=== PATIENT | female | born 1965 | race American Indian/Alaskan Native ===

== ENCOUNTER 2019-11-16 06:43 | Inpatient (IN) | payer SELFPAY ==
[2019-11-16 07:42] LABS: Calcium 9.8 mg/dL (8.4-10.2)
[2019-11-16 08:29] LABS: Basophils # (Auto) 0.1 K/mm3 (0.0-0.1); Basophils % (Auto) 1.1 % (0.0-1.8); Eosinophils # (Auto) 0.2 K/mm3 (0.0-0.4); Eosinophils % (Auto) 3.1 % (0.0-4.3); Hematocrit 30.8 % (30.3-42.9); Hemoglobin 9.9 gm/dl (10.1-14.3); Lymphocytes # (Auto) 2.5 K/mm3 (1.2-5.4); Lymphocytes % (Auto) 48.8 % (13.4-35.0); Mean Corpuscular HGB Conc 32 % (30-34); Mean Corpuscular Volume 95 fl (79-97); Monocytes # (Auto) 0.4 K/mm3 (0.0-0.8); Monocytes % (Auto) 7.5 % (0.0-7.3); Platelet Count 293 K/mm3 (140-440); Red Blood Count 3.24 M/mm3 (3.65-5.03); Red Cell Distribution Width 16.1 % (13.2-15.2)
[2019-11-16] MEDS ORDERED: FUROSEMIDE 40 MG/4 ML INJ IV ONE (12:49)
--- NOTE | 2019-11-16 12:56 | Emergency Department Report ---
ED Shortness of Breath HPI - General Chief Complaint: Dyspnea/Respdistress Stated Complaint: FACIAL SWELLING/SOB Time Seen by Provider: 11/16/19 12:46 Source: patient, family Mode of arrival: Ambulatory Limitations: No Limitations - History of Present Illness Initial Comments: Patient is 54 years old female morbidly obese with no significant past medical history however patient stated that the last time she saw a doctor was in 2014. Patient presented to the ER complaining of generalized body swelling and shortness of breath. Patient also stated that she is having trouble walking was out getting a shortness of breath even for short distance. Patient with positive orthopnea. Patient denied any fever or chills. No chest pain. MD Complaint: shortness of breath, cough -: week(s) (2) - Related Data Previous Rx's Medication Instructions Recorded Last Taken Type Acetaminophen/Codeine [Tylenol #3] 1 tab PO Q6H PRN #2 tab 07/31/13 Unknown Rx Ibuprofen [Motrin 800 MG tab] 800 mg PO Q8HR PRN #30 tablet 10/22/15 Unknown Rx traMADoL [Ultram 50 MG tab] 50 mg PO Q6HR PRN #20 tablet 10/22/15 Unknown Rx Allergies Allergy/AdvReac Type Severity Reaction Status Date / Time No Known Allergies Allergy Unverified 07/31/13 04:03 ED Review of Systems ROS: Stated complaint: FACIAL SWELLING/SOB Other details as noted in HPI Comment: All other systems reviewed and negative Constitutional: denies: chills, fever Respiratory: cough, orthopnea, shortness of breath, SOB with exertion, SOB at rest. denies: wheezing Cardiovascular: dyspnea on exertion, orthopnea, paroxysmal nocturnal dyspnea. denies: chest pain Gastrointestinal: denies: abdominal pain Genitourinary: denies: urgency, dysuria Musculoskeletal: denies: back pain Neurological: denies: headache, weakness, numbness, paresthesias, confusion, abnormal gait ED Past Medical Hx - Past Medical History Previous Medical History?: Yes Additional medical history: Obesity - Surgical History Past Surgical History?: Yes Additional Surgical History: - Social History Smoking Status: Never Smoker Substance Use Type: None - Medications Home Medications: Home Medications Medication Instructions Recorded Confirmed Last Taken Type Acetaminophen/Codeine [Tylenol #3] 1 tab PO Q6H PRN #2 tab 07/31/13 Unknown Rx Ibuprofen [Motrin 800 MG tab] 800 mg PO Q8HR PRN #30 tablet 10/22/15 Unknown Rx traMADoL [Ultram 50 MG tab] 50 mg PO Q6HR PRN #20 tablet 10/22/15 Unknown Rx ED Physical Exam - General Limitations: No Limitations General appearance: alert - Head Head exam: Present: atraumatic, normocephalic - Eye Eye exam: Present: normal appearance, PERRL, periorbital swelling - ENT ENT exam: Present: normal exam, normal orophraynx, mucous membranes moist - Neck Neck exam: Present: normal inspection, full ROM. Absent: tenderness, meningismus, lymphadenopathy, thyromegaly - Respiratory Respiratory exam: Present: rales. Absent: respiratory distress - Cardiovascular Cardiovascular Exam: Present: regular rate, normal rhythm, normal heart sounds - GI/Abdominal GI/Abdominal exam: Present: soft, normal bowel sounds. Absent: distended, tenderness, guarding, rebound, rigid, mass, bruit, pulsatile mass, hernia - Extremities Exam Extremities exam: Present: normal capillary refill, pedal edema. Absent: calf tenderness - Back Exam Back exam: Present: normal inspection, full ROM. Absent: CVA tenderness (R), CVA tenderness (L), muscle spasm, paraspinal tenderness, vertebral tenderness - Neurological Exam Neurological exam: Present: alert, oriented X3, CN II-XII intact, normal gait, reflexes normal - Psychiatric Psychiatric exam: Present: normal mood - Skin Skin exam: Present: warm, intact, normal color ED Course Vital Signs 11/16/19 11/16/19 06:49 13:31 Temperature 97.4 F L Pulse Rate 80 100 H Respiratory 20 16 Rate Blood Pressure 144/95 139/78 O2 Sat by Pulse 96 96 Oximetry ED Medical Decision Making - Lab Data Result diagrams: 11/16/19 07:12 11/16/19 07:12 - EKG Data -: EKG Interpreted by [place] EKG shows normal: sinus rhythm Rate: normal - EKG Data Interpretation: no acute changes - Radiology Data Radiology results: report reviewed - Medical Decision Making Patient is 54 years old female morbidly obese with no significant past medical history however patient stated that the last time she saw a doctor was in 2014. Patient presented to the ER complaining of generalized body swelling and shortness of breath. Patient also stated that she is having trouble walking was out getting a shortness of breath even for short distance. Patient with positive orthopnea. Patient denied any fever or chills. No chest pain. Patient received Lasix 40 mg IV. EKG showed no ST elevation or depression. Chest x-ray showed cardiomegaly, pleural effusion and pulmonary congestion consistent with knee onset congestive heart failure. Patient troponin is slightly elevated. Patient given aspirin. I discussed the patient with Dr. Shahab srinivasan, he advised to admit the patient to Dr. Thompson. Critical Care Time: Yes Critical care time in (mins) excluding proc time.: 30 Critical care attestation.: If time is entered above; I have spent that time in minutes in the direct care of this critically ill patient, excluding procedure time. ED Disposition Clinical Impression: New onset of congestive heart failure, Shortness of breath, Elevated troponin Disposition: OP ADMIT IP TO THIS HOSP Is pt being admited?: Yes Condition: Stable Referrals: PRIMARY CARE, [Primary Care Provider] - 3-5 Days
--- NOTE | 2019-11-16 13:21 | XRay Report ---
CHEST 1 VIEW INDICATION / CLINICAL INFORMATION: Dyspnea. COMPARISON: 08/29/2010 FINDINGS: SUPPORT DEVICES: None. HEART / MEDIASTINUM: Cardiac silhouette is mild to moderately enlarged. This represents interval mueller ge compared with the 2010 chest radiograph.. LUNGS / PLEURA: Mild pulmonary vascular congestion without overt interstitial pulmonary edema. No pne umothorax. ADDITIONAL FINDINGS: No significant additional findings. IMPRESSION: 1. Since 2009, cardiac silhouette has definitely enlarged. It is unclear if this is secondary to card iomegaly or pericardial effusion. There is associated mild pulmonary vascular congestion. Signer Name: Susan Lechuga MD Signed: 11/16/2019 1:16 PM Workstation Name: [id number]
[2019-11-16 13:40] LABS: INR 0.95 (0.87-1.13)
[2019-11-16 13:41] LABS: Partial Thromboplastin Time 38.6 Sec. (24.2-36.6)
[2019-11-16] MEDS ORDERED: ASPIRIN 81 MG TAB CHEW PO ONE (14:12)
[2019-11-16 14:13] LABS: Chol/HDL Ratio 7.25 %
[2019-11-16] MEDS ORDERED: hydrALAZINE 20 MG/1 ML INJ IV PRN (14:20)
[2019-11-16] MEDS ORDERED: ONDANSETRON 4 MG/2 ML INJ IV PRN (14:20)
[2019-11-16] MEDS ORDERED: ACETAMINOPHEN 325 MG TAB PO PRN (14:20)
--- NOTE | 2019-11-16 14:22 | History and Physical Report ---
History of Present Illness Date of examination: 11/16/19 Date of admission: 11/16/19 Chief complaint: SOB History of present illness: Patient is 54 years old female morbidly obese with no significant past medical history however patient stated that the last time she saw a doctor was in 2014. Patient presented to the ER complaining of generalized body swelling and shortness of breath. Patient also stated that she is having trouble walking was out getting a shortness of breath even for short distance. Patient with positive orthopnea. Patient denied any fever or chills. No chest pain. Review of System: Constitutional: no fever, no chills, no weight loss, positive facial swelling Ears, eyes, nose, mouth and throat: no nasal congestion, no nasal discharge, no sinus pressure, no vision change, no red eye. Neck: No neck pain or rigidity. Cardiovascular: No chest pain, no orthopnea, no palpitations, + leg swelling Respiratory: + shortness of breath, + cough, + congestion, + wheezing Gastrointestinal: no abdominal pain, no nausea, no vomiting Genitourinary : no dysuria, no hematuria Musculoskeletal: no joint swelling or muscle ache Integumentary: no rash, no pruritis Neurological: no parathesias, no numbness, no tingling Endocrine: no cold or heat intolerance, no polyuria or polydipsia Hematologic/Lymphatic: no easy bruising, no easy bleeding, no gland swelling Allergic/Immunologic: no urticaria, no angioedema. Past History Past Medical History: No medical history Past Surgical History: Social history: denies: smoking, alcohol abuse, IV drug use Family history: hypertension Medications and Allergies Allergies Allergy/AdvReac Type Severity Reaction Status Date / Time No Known Allergies Allergy Unverified 07/31/13 04:03 Home Medications Medication Instructions Recorded Confirmed Last Taken Type Acetaminophen/Codeine [Tylenol #3] 1 tab PO Q6H PRN #2 tab 07/31/13 11/16/19 1 Day Ago Rx ~11/15/19 Ibuprofen [Motrin 800 MG tab] 800 mg PO Q8HR PRN #30 tablet 10/22/15 11/16/19 1 Day Ago Rx ~11/15/19 traMADoL [Ultram 50 MG tab] 50 mg PO Q6HR PRN #20 tablet 10/22/15 11/16/19 1 Day Ago Rx ~11/15/19 Active Meds: Active Medications Acetaminophen (Tylenol) 650 mg PO Q4H PRN PRN Reason: Pain MILD(1-3)/Fever >100.5/CALLE Famotidine (Pepcid) 10 mg PO BID PATRICIA Hydralazine HCl (Apresoline) 5 mg IV Q30MIN PRN PRN Reason: Hypertension Ondansetron HCl (Zofran) 4 mg IV Q8H PRN PRN Reason: N/V unrelieved by Reglan Oxycodone/Acetaminophen (Percocet 5/325) 1 tab PO Q6H PRN PRN Reason: Pain, Moderate (4-6) Exam - Physical Exam Narrative exam: GENERAL: Morbidly obese -Congolese female lying on bed appeared to be in no discomfort. HEENT: Normocephalic. Atraumatic. No conjunctival congestion or icterus. Patient has moist mucous membranes. NECK: Supple. Trachea midline. CHEST/LUNGS: breathing nonlabored. No wheezes or rhonchi. Few bibasilar crackles HEART/CARDIOVASCULAR: Regular in rate and rhythm. S1 and S2 positive. ABDOMEN: Abdomen is soft, nontender. Patient has normal bowel sounds. SKIN: There is no rash. Warm and dry. NEURO: No focal motor deficit. Follows command. MUSCULOSKELETAL: No joint effusion or tenderness. EXTRIMITY: Trace edema, no cyanosis or clubbing. PSYCH: Cooperative. - Constitutional Vitals: Temp Pulse Resp BP Pulse Ox 97.4 F L 100 H 16 139/78 96 11/16/19 06:49 11/16/19 13:31 11/16/19 13:31 11/16/19 13:31 11/16/19 13:31 Results - Labs CBC & Chem 7: 11/16/19 07:12 11/18/19 06:58 Labs: Abnormal lab results 11/16/19 11/16/19 11/16/19 Range/Units 07:12 07:12 07:12 RBC 3.24 L (3.65-5.03) M/mm3 Hgb 9.9 L (10.1-14.3) gm/dl RDW 16.1 H (13.2-15.2) % Lymph % (Auto) 48.8 H (13.4-35.0) % [place] % (Auto) 7.5 H (0.0-7.3) % Seg Neutrophils % 39.5 L (40.0-70.0) % APTT (24.2-36.6) Sec. Chloride 96.0 L (98-107) mmol/L BUN 6 L (7-17) mg/dL Troponin T 0.054 H (0.00-0.029) ng/mL Triglycerides 279 H (2-149) mg/dL Cholesterol 421 H (50-199) mg/dL LDL Cholesterol Direct 328 H (50-130) mg/dL 11/16/19 Range/Units 13:12 RBC (3.65-5.03) M/mm3 Hgb (10.1-14.3) gm/dl RDW (13.2-15.2) % Lymph % (Auto) (13.4-35.0) % [place] % (Auto) (0.0-7.3) % Seg Neutrophils % (40.0-70.0) % APTT 38.6 H (24.2-36.6) Sec. Chloride (98-107) mmol/L BUN (7-17) mg/dL Troponin T (0.00-0.029) ng/mL Triglycerides (2-149) mg/dL Cholesterol (50-199) mg/dL LDL Cholesterol Direct (50-130) mg/dL Assessment and Plan Possible new onset CHF with systolic failure NSTEMI likely type 2 Hyperlipidemia Morbid obesity - - admit to telemetry bed - monitor with serial CE and EKG - will place on Aspirin, statin, and Lasix IV - order 2D echo and consult cardiology - cardiac diet now, daily weights, monitor in's and O's - Weight reduction diet and excision regimen when medically stable - provide DVT Px with lovenox
[2019-11-16 15:59] LABS: Alanine Aminotransferase 19 units/L (7-56); Albumin 4.5 g/dL (3.9-5)
[2019-11-16 16:05] LABS: Bilirubin,Direct < 0.2 mg/dL (0-0.2)
[2019-11-16] MEDS ORDERED: ENOXAPARIN 40 MG/0.4 ML INJ SUB-Q ONE (17:03)
[2019-11-16] MEDS: ASPIRIN 325 MG TAB PO SCH (17:07)
[2019-11-16] MEDS: ENOXAPARIN 40 MG/0.4 ML INJ SUB-Q SCH (17:11)
[2019-11-16] MEDS: FAMOTIDINE 10 MG TAB PO SCH (21:17)
--- NOTE | 2019-11-17 10:55 | Consultation ---
History of Present Illness Consult date: 11/17/19 Requesting physician: RONEN PATEL Consult reason: congestive heart failure History of present illness: 54-year-old female with morbid obesity has not had medical care for years has chronic back issues having shortness shortness of breath. Having swelling and unable to lay down flat. Came to the ER for further evaluation was admitted for congestive heart failure patient denies any fever or chills. Patient had no syncope no palpitations. Patient shortness with minimal exertion.. Patient denies any syncope. Patient states having some swelling in the tongue and face but denies any medication. Past History Past Medical History: denies: No medical history Past Surgical History: Social history: denies: no significant social history Family history: denies: no significant family history Medications and Allergies Allergies Allergy/AdvReac Type Severity Reaction Status Date / Time No Known Allergies Allergy Unverified 07/31/13 04:03 Home Medications Medication Instructions Recorded Confirmed Last Taken Type Acetaminophen/Codeine [Tylenol #3] 1 tab PO Q6H PRN #2 tab 07/31/13 11/16/19 1 Day Ago Rx ~11/15/19 Ibuprofen [Motrin 800 MG tab] 800 mg PO Q8HR PRN #30 tablet 10/22/15 11/16/19 1 Day Ago Rx ~11/15/19 traMADoL [Ultram 50 MG tab] 50 mg PO Q6HR PRN #20 tablet 10/22/15 11/16/19 1 Day Ago Rx ~11/15/19 Active Meds: Active Medications Acetaminophen (Tylenol) 650 mg PO Q4H PRN PRN Reason: Pain MILD(1-3)/Fever >100.5/CALLE Last Admin: 11/16/19 21:16 Dose: 650 mg Documented by: Aspirin (Aspirin) 325 mg PO QDAY [facility] Last Admin: 11/16/19 17:07 Dose: Not Given Documented by: Atorvastatin Calcium (Lipitor) 40 mg PO QHS [facility] Last Admin: 11/16/19 21:17 Dose: 40 mg Documented by: Carvedilol (Coreg) 3.125 mg PO BID [facility] Diphenhydramine HCl (Banophen) 25 mg PO ONCE ONE Stop: 11/17/19 11:01 Enoxaparin Sodium (Enoxaparin) 40 mg SUB-Q Q24H [facility] Last Admin: 11/16/19 17:11 Dose: 40 mg Documented by: Famotidine (Pepcid) 10 mg PO BID [facility] Last Admin: 11/16/19 21:17 Dose: 10 mg Documented by: Furosemide (Lasix) 40 mg IV 0600,1800 [facility] Hydralazine HCl (Apresoline) 5 mg IV Q30MIN PRN PRN Reason: HTN SYS>180 JACK >100 Ondansetron HCl (Zofran) 4 mg IV Q8H PRN PRN Reason: N/V unrelieved by Reglan Oxycodone/Acetaminophen (Percocet 5/325) 1 tab PO Q6H PRN PRN Reason: Pain, Moderate (4-6) Pneumococcal Polyvalent Vaccine (Pneumovax 23) 0.5 ml IM .ONCE ONE Stop: 11/17/19 12:01 Review of Systems All systems: negative (as per hpi) Physical Examination Vital Signs Temp Pulse Resp BP Pulse Ox 97.4 F L 80 20 144/95 96 11/16/19 06:49 11/16/19 06:49 11/16/19 06:49 11/16/19 06:49 11/16/19 06:49 General appearance: no acute distress, well-nourished HEENT: Positive: PERRL, Mucus Membranes Moist Neck: Positive: neck supple, trachea midline Cardiac: Positive: Reg Rate and Rhythm, S1/S2. Negative: Audible Murmur Lungs: Positive: clear to auscultation, Normal Breath Sounds Neuro: Positive: Grossly Intact Abdomen: Positive: Soft, Active Bowel Sounds. Negative: Tender, Distended Female genitourinary: deferred Skin: Positive: Clear Incision: Cardiac Cath Site Musculoskeletal: No Pain, Normal Range of Motion Extremities: Present: normal. Absent: edema Results 11/16/19 07:12 11/16/19 07:12 Cardiac Enzymes 11/16/19 Range/Units 14:41 AST 79 H (5-40) units/L Coagulation 11/16/19 Range/Units 13:12 PT 12.8 (12.2-14.9) Sec. INR 0.95 (0.87-1.13) APTT 38.6 H (24.2-36.6) Sec. Lipids 11/16/19 Range/Units 07:12 Triglycerides 279 H (2-149) mg/dL Cholesterol 421 H (50-199) mg/dL HDL Cholesterol 58 (40-59) mg/dL Cholesterol/HDL Ratio 7.25 % Comprehensive Metabolic Panel 11/16/19 Range/Units 14:41 Direct Bilirubin < 0.2 (0-0.2) mg/dL Indirect Bilirubin 0.1 mg/dL AST 79 H (5-40) units/L ALT 19 (7-56) units/L Alkaline Phosphatase 57 (35-129) units/L Total Protein 9.4 H (6.3-8.2) g/dL Albumin 4.5 (3.9-5) g/dL EKG interpretations - Telemetry EKG Rhythm: Sinus Rhythm (normal sinus rhythm nonspecific ST-T wave) Assessment and Plan Morbid obesity Acute systolic heart failure nstemi type 2 Hyperlipidemia Recommend low-dose beta josué hold GIOVANI inhibitor and ARB secondary to tongue and lip swelling will continue high-dose statin. echo will do a Lexiscan nuclear stress test
[2019-11-17] MEDS ORDERED: diphenhydrAMINE 25 MG/10 ML ORAL LIQUID PO ONE (11:00)
[2019-11-17] MEDS: ASPIRIN 325 MG TAB PO SCH (11:43)
[2019-11-17] MEDS: oxyCODONE /ACETAMINOPHEN 5-325MG TAB PO PRN (11:43)
[2019-11-17] MEDS: FAMOTIDINE 10 MG TAB PO SCH ×2 (11:43→23:31)
[2019-11-17] MEDS: FUROSEMIDE 40 MG/4 ML INJ IV SCH ×2 (11:44→23:42)
[2019-11-17] MEDS ORDERED: FLU VACC QUAD 2019-20 (3 YR UP)/PF 60 MCG/0.5 ML SYRINGE IM ONE (12:00)
[2019-11-17] MEDS ORDERED: PNEUMOCOCCAL 23 Valent 0.5 ML VIAL IM ONE (12:00)
--- NOTE | 2019-11-17 15:20 | Progress Note ---
Assessment and Plan Possible new onset CHF NSTEMI likely type 2 Hyperlipidemia Morbid obesity -Continue to monitor at telemetry bed -Trending cardiac enzymes, no chest pain -Continue on Aspirin, statin, and Lasix IV -Pending 2D echo and cardiology following - cardiac diet now, daily weights, monitor in's and O's - Weight reduction diet and excision regimen when medically stable - provide DVT Px with lovenox Subjective Date of service: 11/17/19 Interval history: Patient seen and examined. Medical records and medication list reviewed. No acute event overnight noted by the RN. Patient denies any chest pain but still has difficulty breathing on exertion and bilateral lower extremities swelling. Patient is tolerating diet. Discussed plan of care at bedside with patient. Objective - Exam Narrative Exam: GENERAL: Morbidly obese -[place] female lying on bed appeared to be in no discomfort. HEENT: Normocephalic. Atraumatic. No conjunctival congestion or icterus. Patient has moist mucous membranes. NECK: Supple. Trachea midline. CHEST/LUNGS: breathing nonlabored. No wheezes or rhonchi. Few bibasilar crackles HEART/CARDIOVASCULAR: Regular in rate and rhythm. S1 and S2 positive. ABDOMEN: Abdomen is soft, nontender. Patient has normal bowel sounds. SKIN: There is no rash. Warm and dry. NEURO: No focal motor deficit. Follows command. MUSCULOSKELETAL: No joint effusion or tenderness. EXTRIMITY: Trace edema, no cyanosis or clubbing. PSYCH: Cooperative. - Constitutional Vitals: Vital Signs - 12hr 11/17/19 11/17/19 11/17/19 06:16 09:50 12:32 Temperature 98.2 F 97.9 F 97.2 F L Pulse Rate 66 68 67 Respiratory 16 18 18 Rate Blood Pressure 151/82 145/85 122/81 O2 Sat by Pulse 96 96 92 Oximetry - Labs CBC & Chem 7: 11/16/19 07:12 11/18/19 06:58 Labs: Abnormal lab results 11/16/19 11/16/19 11/17/19 Range/Units 14:41 19:26 00:07 AST 79 H (5-40) units/L Troponin T 0.049 H 0.041 H (0.00-0.029) ng/mL Total Protein 9.4 H (6.3-8.2) g/dL 11/17/19 11/17/19 Range/Units 06:42 13:19 AST (5-40) units/L Troponin T 0.045 H 0.048 H (0.00-0.029) ng/mL Total Protein (6.3-8.2) g/dL
[2019-11-17] MEDS: ENOXAPARIN 40 MG/0.4 ML INJ SUB-Q SCH (15:24)
[2019-11-17] MEDS: carvediloL 3.125 MG TAB PO SCH (23:42)
[2019-11-18] MEDS: oxyCODONE /ACETAMINOPHEN 5-325MG TAB PO PRN (03:08)
[2019-11-18] MEDS: FUROSEMIDE 40 MG/4 ML INJ IV SCH (06:31)
[2019-11-18 07:45] LABS: Calcium 9.1 mg/dL (8.4-10.2)
[2019-11-18] MEDS ORDERED: REGADENOSON 0.4 MG/5 ML INJ IV ONE (09:57)
[2019-11-18] MEDS ORDERED: FUROSEMIDE 40 MG/4 ML INJ IV SCH (10:00)
--- NOTE | 2019-11-18 11:41 | Progress Note ---
Assessment and Plan tte reviewed - EF 45-50%, mild LVH, abnormal diastolic function, mild AR, small pericardial effusion. Cont low-dose beta josué. hold GIOVANI inhibitor and ARB secondary to tongue and lip swelling. continue high-dose statin. Proceed with lexiscan MPI stress test. Await findings. The patient has been seen in conjunction with Dr. Indra Díaz who agrees with the assessment and plan of care. - Patient Problems (1) Acute HFrEF (heart failure with reduced ejection fraction) Current Visit: Yes Status: Acute (2) Elevated troponin Current Visit: Yes Status: Acute (3) Hyperlipidemia Current Visit: Yes Status: Chronic (4) Morbid obesity Current Visit: Yes Status: Chronic Subjective Date of service: 11/18/19 Principal diagnosis: hf Interval history: pt for stress test Objective Last Vital Signs Temp 97.7 F 11/18/19 07:30 Pulse 63 11/18/19 07:30 Resp 18 11/18/19 07:30 BP 132/72 11/18/19 10:52 Pulse Ox 95 11/18/19 07:30 - Physical Examination HEENT: Positive: PERRL, Mucus Membranes Moist Neck: Positive: neck supple, trachea midline Cardiac: Positive: Reg Rate and Rhythm, S1/S2 Lungs: Positive: Decreased Breath Sounds Neuro: Positive: Grossly Intact Abdomen: Positive: Soft, Active Bowel Sounds. Negative: Tender, Distended Skin: Positive: Clear Incision: Cardiac Cath Site Musculoskeletal: No Pain, Normal Range of Motion Extremities: Present: normal. Absent: edema - Labs and Meds Comprehensive Metabolic Panel 11/18/19 Range/Units 06:58 Sodium 134 L (137-145) mmol/L Potassium 3.4 L (3.6-5.0) mmol/L Chloride 92.4 L (98-107) mmol/L Carbon Dioxide 27 (22-30) mmol/L BUN 8 (7-17) mg/dL Creatinine 1.4 H (0.7-1.2) mg/dL Glucose 87 (65-100) mg/dL Calcium 9.1 (8.4-10.2) mg/dL - Imaging and Cardiology EKG: report reviewed, image reviewed Echo: report reviewed - Telemetry EKG Rhythm: Sinus Rhythm
--- NOTE | 2019-11-18 12:29 | Treadmill Report ---
NUCLEAR STRESS TEST REFERRING PHYSICIAN: Hospitalist service. PROTOCOL: The patient was brought to the stress lab in a postoperative state, given 10 mCi of technetium 99m at rest. The patient underwent rest imaging. The patient underwent Lexiscan stress test. At peak stress, the patient was given 26 mCi of technetium 99m. Shortly thereafter, the patient underwent stress imaging. Raw imaging reveals mild GI artifact, no significant motion artifact, technically difficult study due to body habitus. Grossly no evidence of significant fixed or reversible perfusion defects suggestive of prior infarction or ischemia. Gated wall motion reveals mild global LV hypokinesis with a calculated ejection fraction of 45%. No TID. CONCLUSIONS: 1. Technically difficult study, but grossly probably normal without evidence of significant degree of ischemia or prior infarction. 2. Mild global left ventricular hypokinesis with a calculated ejection fraction of 45% without evidence of transient ischemic dilatation or stress-induced segmental wall motion abnormalities. JOB# [id number]/[id number]
--- NOTE | 2019-11-18 13:24 | Event Note ---
Date: 11/18/19 S/p lexiscan MPI stress test this AM which was TDS, negative, EF 45%. Currently stable cardiac status. pt may discharge from cardiology standpoint. At discharge, recommend PO lasix 20mg daily and cont all other present cardiac management. Recommend follow up in our office with Dr. Potter within 3-5 days ([phone]). Glo BRYAN NP / DR. Indra RODRIGUEZ
[2019-11-18] MEDS: carvediloL 3.125 MG TAB PO SCH (13:38)
[2019-11-18] MEDS: ASPIRIN 325 MG TAB PO SCH (13:38)
[2019-11-18] MEDS: FAMOTIDINE 10 MG TAB PO SCH (13:44)
[2019-11-18 13:45] VITALS: BP 129/77
--- NOTE | 2019-11-18 16:07 | Discharge Summary ---
Providers - Providers Date of Admission: 11/16/19 14:17 Date of discharge: 11/18/19 Attending physician: RONEN PATEL 11/16/19 14:20 Consult to Physician [CONS] Routine Comment: CLD ANSWERING SVC TO ADV OF CONSULT @[id number] Consulting Provider: LANETTE ALARCON Physician Instructions: Reason For Exam: possible CHf Primary care physician: RECORD SYSTEMS ANALYST Hospitalization Condition: Stable Hospital course: This is a 54-year-old morbidly obese -[place] female presented to the hospital with progressively worsening shortness of breath and bilateral lower expertise swelling. Patient was admitted to telemetry floor with scheduled iv diuretics. Monitored with serial CE, EKG. Cardiology consulted, 2d echo obtained. Provided cardiac diet, daily weights, monitored in's and O's. Patients symptom improved with medical management. Her ANABELL showed EF 45-50%, mild LVH, abnormal diastolic function, mild AR, small pericardial effusion. Cardiologic recommended to continue low-dose beta josué, no ACEI for tongue and lip swelling, continue low-dose stating and low-dose Lasix. Lexiscan MPI stress test was normal. Patient was discharged home in stable condition with outpatient follow-up with Dr. Velasquez. Discharge diagnosis: New onset systolic CHF, Ef 45% NSTEMI likely type 2 Hyperlipidemia Morbid obesity Disposition: - TO HOME OR SELFCARE Time spent for discharge: 34 minutes Exam - Physical Exam Narrative exam: GENERAL: Morbidly obese -Czech female lying on bed appeared to be in no discomfort. HEENT: Normocephalic. Atraumatic. No conjunctival congestion or icterus. Patient has moist mucous membranes. NECK: Supple. Trachea midline. CHEST/LUNGS: breathing nonlabored. No wheezes or rhonchi. Few bibasilar crackles HEART/CARDIOVASCULAR: Regular in rate and rhythm. S1 and S2 positive. ABDOMEN: Abdomen is soft, nontender. Patient has normal bowel sounds. SKIN: There is no rash. Warm and dry. NEURO: No focal motor deficit. Follows command. MUSCULOSKELETAL: No joint effusion or tenderness. EXTRIMITY: Trace edema, no cyanosis or clubbing. PSYCH: Cooperative. - Constitutional Vitals: Temp Pulse Resp BP Pulse Ox 97.7 F 74 18 129/77 95 11/18/19 07:30 11/18/19 13:38 11/18/19 07:30 11/18/19 13:38 11/18/19 07:30 Plan Activity: advance as tolerated Weight Bearing Status: Weight Bear as Tolerated Diet: low fat, low salt Special Instructions: record daily weights, record daily BP diary Follow up with: PRIMARY CARE, [Primary Care Provider] - 3-5 Days Prescriptions: AtorvaSTATin [Lipitor] 40 mg PO QHS #30 tablet carvediloL [Coreg] 3.125 mg PO BID #60 tablet Aspirin EC [Halfprin EC] 81 mg PO QDAY #30 tablet. Furosemide [Lasix] 20 mg PO QDAY #30 tablet
== END 2019-11-18 17:50 | disposition home or self-care (01) | DRG 281 ==
LOC: ED 06:43 → 4A 14:17
PROVIDERS: ADMIT Internal Medicine; ATTEND Internal Medicine
DX: I50.21 Acute systolic (congestive) heart failure (principal); I21.A1 Myocardial infarction type 2; Z68.43 Body mass index [BMI] 50.0-59.9, adult; I31.3 Pericardial effusion (noninflammatory); E66.01 Morbid (severe) obesity due to excess calories; E78.5 Hyperlipidemia, unspecified; I35.1 Nonrheumatic aortic (valve) insufficiency
CPT/HCPCS: 36415; 71045; 78452; 80048; 80061; 80076; 82962; 83735; 83880; 84484; 85025; 85610; 85730; 87086; 90686; 90732; 93005; 93010; 93017; 93306; G0378; A9270-GY; A9502; J1650; J1940; J2785; Q0163